=== PATIENT | female | born 1975 | race Two or more races ===

== ENCOUNTER 2024-01-26 08:12 | Day surgery (SDC) | payer MEDICAID ==
[2024-01-25 10:53] LABS: Urine Bacteria None Seen /hpf (None Seen)
[2024-01-25 10:58] LABS: Basophils # (auto) 0 10 ^3/uL (0-0.2); Basophils % (auto) 0.6 % (0.0-2.0); Eosinophils # (auto) 0 10 ^3/uL (0-0.8); Hemoglobin 11.3 g/dL (12.2-16.2); Monocytes # (auto) 0.4 10 ^3/uL (0-1.3)
[2024-01-25 11:01] LABS: Eosinophils % (auto) 0.5 % (0.0-7.0); Hematocrit 34.8 % (36.0-46.0); Lymphocytes # (auto) 1.9 10 ^3/uL (0.4-5.4); Lymphocytes % (auto) 26.2 % (10.0-50.0); Mean Corpuscular Hemoglobin 24.3 pg (28.0-32.0); Mean Corpuscular Hgb Conc. 32.5 g/dL (32.0-36.0); Mean Corpuscular Volume 74.9 fL (80.0-100.0); Monocytes % (auto) 6.2 % (0.0-12.0); Neutrophils # (auto) 4.8 10 ^3/uL (1.6-8.6); Neutrophils % (auto) 66.5 % (37.0-80.0); Nucleated Red Blood Cells % 0.1 %; Platelet Count (auto) 413 10^3/uL (140-450); Red Blood Cells 4.65 10^6/uL (4.0-5.20); Red Cell Distribution Width 17.1 % (11.8-14.3); White Blood Cell 7.2 10^3/uL (4.4-10.8)
[2024-01-25 11:37] LABS: INR 0.99 (0.9-1.15); Partial Thromboplastin Time 26.8 SEC (24.5-34.5); Prothrombin Time 10.7 sec (9.3-11.8)
[2024-01-25 12:04] LABS: Alanine Aminotransferase 25 U/L (7-40); Alkaline Phosphatase 116 U/L (46-116); Anion Gap 7 (5-15); BUN/Creatinine Ratio 12.1 (10.0-20.0); Blood Urea Nitrogen 8 mg/dL (9-23); Calcium 9.2 mg/dL (8.7-10.4); Carbon Dioxide 26 mmol/L (20-30); Chloride 107 mmol/L (98-107); Glucose 180 mg/dL (74-106); Potassium 4.3 mmol/L (3.5-5.1); Sodium 140 mmol/L (136-145)
[2024-01-25 12:06] LABS: Albumin 4.2 g/dL (3.2-4.8); Aspartate Aminotransferase 20 U/L (13-40); Bilirubin, Total 0.4 mg/dL (0.2-1.0); Total Protein 7.4 g/dL (5.7-8.2); Urine Blood Negative /uL (Negative); Urine Clarity Turbid (Clear); Urine Color Yellow (Yellow); Urine Mucus FEW (None Seen); Urine Protein, UAD TRACE (Negative); Urine Specific Gravity 1.023 (1.001-1.035); Urine Urobilinogen Normal (Negative); Urine WBC 2 /hpf (0 - 5); Urine pH 5.5 (5.0-9.0)
[~2024-01-26] VITALS: Ht 157.5 cm; Wt 108.9 kg
[~2024-01-26 08:12] MED LIST: GLIP10TA9 PO; METF-370 PO; SEMA2INJ3 SC
[2024-01-26] MEDS ORDERED: fentaNYL CITRATE 100 MCG/2 ML VL ONE (09:10)
[2024-01-26] MEDS ORDERED: MEPERIDINE HCL (50 MG/ML) 1 ML VIAL ONE (09:10)
[2024-01-26] MEDS ORDERED: PROPOFOL 10 MG/ML 20 ML IV ONE (09:11)
[2024-01-26] MEDS ORDERED: ONDANSETRON HCL 4 MG/2 ML VIAL ONE (09:11)
[2024-01-26] MEDS ORDERED: MIDAZOLAM HCL 2MG/2ML 2ml VIAL (1mg/ml) ONE (09:11)
[2024-01-26] MEDS ORDERED: LIDOCAINE 1% INJ PF 5ML AMP ONE (09:11)
[2024-01-26 09:39] VITALS: PULSE 86; RESP 21; TEMP 98; O2SAT 100
[2024-01-26 10:00] VITALS: BP 146/84; PULSE 97; RESP 18; O2SAT 97
== END 2024-01-26 10:15 | disposition home or self-care (01) ==
LOC: GI 08:12
PROVIDERS: ATTEND Internal Medicine Gastroenterology
DX: Z12.11 Encounter for screening for malignant neoplasm of colon (principal); K64.8 Other hemorrhoids; I10 Essential (primary) hypertension; E66.01 Morbid (severe) obesity due to excess calories; E11.9 Type 2 diabetes mellitus without complications; Z68.41 Body mass index [BMI] 40.0-44.9, adult; Z79.84 Long term (current) use of oral hypoglycemic drugs; Z98.890 Other specified postprocedural states
CPT/HCPCS: 36415; 45378; 80053; 81001; 81025; 82962; 85025; 85610; 85730; J2175; J2250; J2405; J2704; J3010